=== PATIENT | female | born 1985 | race Caucasian/White ===

== ENCOUNTER → 2020-10-18 | Outpatient (CLI) | payer OTHER | END | disposition home or self-care (01) | LOC: PRENATAL 10:30 | PROVIDERS: ATTEND Obstetrics & Gynecology Maternal & Fetal Medicine | DX: O24.311 Unspecified pre-existing diabetes mellitus in pregnancy, first trimester (principal); O36.80X1 Pregnancy with inconclusive fetal viability, fetus 1; Z36.89 Encounter for other specified antenatal screening; Z3A.13 13 weeks gestation of pregnancy ==

== ENCOUNTER 2020-12-02 08:03 | Outpatient (CLI) | payer OTHER | END 2020-12-02 10:00 | disposition home or self-care (01) | LOC: PRENATAL 08:03 | PROVIDERS: ATTEND Obstetrics & Gynecology Maternal & Fetal Medicine | DX: O35.0XX1 Maternal care for (suspected) central nervous system malformation in fetus, fetus 1 (principal); O35.3XX1 Maternal care for (suspected) damage to fetus from viral disease in mother, fetus 1; O98.512 Other viral diseases complicating pregnancy, second trimester; O24.312 Unspecified pre-existing diabetes mellitus in pregnancy, second trimester; Z36.89 Encounter for other specified antenatal screening; Z3A.21 21 weeks gestation of pregnancy ==

== ENCOUNTER 2021-01-27 12:46 | Outpatient (CLI) | payer OTHER ==
[2021-02-01] MEDS ORDERED: HUMULIN N100 UNIT/2 SUBCUTANEO (13:08)
[2021-02-01] MEDS ORDERED: HUMULIN R100 UNIT/1 SUBCUTANEO (13:08)
[2021-02-01] MEDS ORDERED: INSULIN SYRING1 EA29 SUBCUTANEO (13:10)
[2021-02-01] MEDS ORDERED: ALCOHOL PADS1 EACH TOP (13:11)
== END 2021-01-27 13:45 | disposition home or self-care (01) ==
LOC: PRENATAL 12:46
PROVIDERS: ATTEND Obstetrics & Gynecology Maternal & Fetal Medicine
DX: O26.843 Uterine size-date discrepancy, third trimester (principal); O24.313 Unspecified pre-existing diabetes mellitus in pregnancy, third trimester; Z36.89 Encounter for other specified antenatal screening; Z3A.29 29 weeks gestation of pregnancy

== ENCOUNTER 2021-03-01 15:37 | Outpatient (CLI) | payer OTHER ==
[~2021-03-01 15:37] MED LIST: ALCOHOL PADS1 EACH TOP; FREESTYLE LIBR1 EAC2 TOP; HUMULIN N100 UNIT/2 SUBCUTANEO; HUMULIN R100 UNIT/1 SUBCUTANEO; INSULIN SYRING1 EA29 SUBCUTANEO
== END 2021-03-01 16:41 | disposition home or self-care (01) ==
LOC: PRENATAL 15:37
PROVIDERS: ATTEND Obstetrics & Gynecology Maternal & Fetal Medicine
DX: O26.843 Uterine size-date discrepancy, third trimester (principal); O24.313 Unspecified pre-existing diabetes mellitus in pregnancy, third trimester; Z36.89 Encounter for other specified antenatal screening; Z3A.34 34 weeks gestation of pregnancy

== ENCOUNTER 2021-03-24 09:13 | Outpatient (CLI) | payer OTHER | END 2021-03-24 10:20 | disposition home or self-care (01) | LOC: PRENATAL 09:13 | PROVIDERS: ATTEND Obstetrics & Gynecology Maternal & Fetal Medicine | DX: O26.843 Uterine size-date discrepancy, third trimester (principal); O24.313 Unspecified pre-existing diabetes mellitus in pregnancy, third trimester; Z36.89 Encounter for other specified antenatal screening; Z3A.36 36 weeks gestation of pregnancy ==

== ENCOUNTER 2021-04-07 04:16 | Inpatient (IN) | payer OTHER ==
[~2021-04-07] VITALS: Ht 170.2 cm; Wt 4.1 kg
[2021-04-07] MEDS ORDERED: BAYER CHILDREN'81 MG PO (05:01)
[2021-04-07] MEDS ORDERED: HUMULIN N100 UNIT/2 SUBCUTANEO ×3 (05:01→05:04)
[2021-04-07] MEDS ORDERED: VITAMIN E PO (05:02)
[2021-04-07] MEDS ORDERED: PRENATAL TABLE1 EAC1 (05:02)
[2021-04-07] MEDS ORDERED: FOLIC ACID0.8 M1 PO (05:02)
[2021-04-07] MEDS ORDERED: HUMULIN R100 UNIT/1 SUBCUTANEO (05:03)
[2021-04-10] MEDS ORDERED: FERROUS SULFAT325 M1 PO (12:52)
[2021-04-10] MEDS ORDERED: SIMETHICONE125 M1 PO (12:52)
[2021-04-10] MEDS ORDERED: DOCUSATE SODIU100 MG PO (12:52)
[2021-04-10] MEDS ORDERED: OXYC1TAB9 PO (12:52)
[2021-04-10] MEDS ORDERED: METFORMIN HCL500 MG PO (12:52)
== END 2021-04-11 13:09 | disposition home or self-care (01) | DRG 786 ==
LOC: SURG-SUITE 04:16 → LDR 04:16 → OB/GYN 19:13 → SURG-SUITE 20:50
PROVIDERS: ADMIT Obstetrics & Gynecology; ATTEND Obstetrics & Gynecology
PROC: 4A1HXFZ Monitoring of Products of Conception, Cardiac Rhythm, External Approach (ICD-10-PCS; 2021-04-07)
PROC: 10D00Z1 Extraction of Products of Conception, Low, Open Approach (ICD-10-PCS; principal; 2021-04-07 14:00)
DX: O76 Abnormality in fetal heart rate and rhythm complicating labor and delivery (principal); O24.02 Pre-existing type 1 diabetes mellitus, in childbirth; E10.65 Type 1 diabetes mellitus with hyperglycemia; O77.0 Labor and delivery complicated by meconium in amniotic fluid; O33.5XX0 Maternal care for disproportion due to unusually large fetus, not applicable or unspecified; O99.824 Streptococcus B carrier state complicating childbirth; Z3A.38 38 weeks gestation of pregnancy; Z37.0 Single live birth

== ENCOUNTER 2021-04-12 22:13 | Outpatient (CLI) | payer OTHER ==
[~2021-04-12 22:13] MED LIST changes: +BAYER CHILDREN'81 MG PO; +DOCUSATE SODIU100 MG PO; +FERROUS SULFAT325 M1 PO; +FOLIC ACID0.8 M1 PO; +METFORMIN HCL500 MG PO; +OXYC1TAB9 PO; +PRENATAL TABLE1 EAC1; +SIMETHICONE125 M1 PO; +VITAMIN E PO
== END 2021-04-13 14:16 | disposition home or self-care (01) ==
LOC: OBS/DEL 22:13
PROVIDERS: ATTEND Obstetrics & Gynecology
DX: O16.5 Unspecified maternal hypertension, complicating the puerperium (principal)